=== PATIENT | female | born 1970 | race Caucasian/White ===

== ENCOUNTER 2017-09-19 08:39 | Day surgery (SDC) | payer OTHER, BC ==
[~2017-09-19] VITALS: Ht 160 cm; Wt 83.3 kg
[2017-09-19] MEDS ORDERED: LACTATED RINGERS 1,000 ML IV SCH (08:56)
[2017-09-19] MEDS ORDERED: LIDOCAINE-MPF 1%, 2ML INFIL ONE (09:00)
[2017-09-19] MEDS ORDERED: OMEP40CA6 PO (09:19)
[2017-09-19] MEDS ORDERED: LEVO50TA PO (09:19)
[2017-09-19] MEDS ORDERED: ERYTHROMYCIN PO (09:19)
[2017-09-19] MEDS ORDERED: PLEASE ENTER ALLERGIES MC SCH (09:30)
[2017-09-19] MEDS ORDERED: PLEASE ENTER HEIGHT AND WEIGHT MC SCH (09:30)
[2017-09-19 09:41] VITALS: BP 123/85
[2017-09-19 09:41] LABS: HCG UR SG 1.014 (1.003-1.030)
[2017-09-19] MEDS ORDERED: [UNRECOGNIZED DRUG - REMARK] INH (09:52)
[2017-09-19] MEDS ORDERED: FENTANYL PF 100 MCG/2ML ONE ×2 (11:52)
[2017-09-19] MEDS ORDERED: MIDAZOLAM 1 MG/ML, 2ML ONE ×2 (11:52)
[2017-09-19] MEDS ORDERED: ONDANSETRON ODT 8 MG ONE ×2 (11:59→12:19)
[2017-09-19] MEDS ORDERED: PROPOFOL 50 ML ONE (12:02)
[2017-09-19] MEDS ORDERED: DEXAMETHASONE 4 MG/ML, 1ML ONE ×2 (12:25)
[2017-09-19] MEDS ORDERED: MEPERIDINE/PF 25MG/0.5ML IVPush PRN (12:30)
[2017-09-19] MEDS ORDERED: FENTANYL PF 100 MCG/2ML IV PRN (12:30)
[2017-09-19] MEDS ORDERED: PROMETHAZINE 25 MG/ML, 1ML IV PRN (12:30)
[2017-09-19] MEDS ORDERED: MORPHINE SULFATE 4 MG/ML, 1ML IVPush PRN (12:30)
[2017-09-19] MEDS ORDERED: ALBUTEROL SULFATE 2.5 MG/3 ML NPPB PRN (12:30)
[2017-09-19] MEDS ORDERED: ACETAMINOPHEN 325 MG TABLET PO PRN (12:30)
[2017-09-19] MEDS ORDERED: OXYcodone 5 MG/5 ML ORAL.SOL UDC PO PRN (12:30)
[2017-09-19] MEDS ORDERED: LABETALOL 5MG/ML, 20ML IV PRN (12:30)
[2017-09-19] MEDS ORDERED: hydrALAzine 20 MG/ML, 1ML IV PRN (12:30)
[2017-09-19] MEDS ORDERED: PROPOFOL 10 MG/ML, 20ML ONE (12:52)
== END 2017-09-19 14:40 ==
LOC: OUT 08:39
PROVIDERS: ATTEND Internal Medicine
DX: K31.89 Other diseases of stomach and duodenum (principal); K21.9 Gastro-esophageal reflux disease without esophagitis; E03.9 Hypothyroidism, unspecified; J45.909 Unspecified asthma, uncomplicated; Z98.890 Other specified postprocedural states; Z87.39 Personal history of other diseases of the musculoskeletal system and connective tissue
CPT/HCPCS: 43242; 81025; 88305; J1100; J2250; J2704; J3010; J3490; J7120; Q0162